=== PATIENT | male | born 1960 | race Caucasian/White ===

== ENCOUNTER 2019-03-06 20:46 | Emergency (ER) | payer OTHER ==
[~2019-03-06] VITALS: Ht 172.7 cm; Wt 75.3 kg
--- NOTE | 2019-03-06 21:02 | NUR ---
PT CAROL FROM HOME C/O L SIDE BODY PAIN AND BACK PAIN. PT STATES HE HAS CHRONIC PAIN, DENIES RECENT TRAUMA. PT [id number], PT APPEARS UNCOMFORTABLE. RESPIRATIONS EVEN AND UNLABORED. SKIN INTACT. NO ACUTE DISTRESS NOTED AT THIS TIME. WILL CONTINUE TO MONITOR
[2019-03-06] MEDS ORDERED: DEXAMETHASONE SOD PHOSPHATE 4 MG/ML VIAL ONE (21:17)
[2019-03-06] MEDS ORDERED: HYDROCODONE/APAP 10/325MG 1 EA TABLET ONE (21:17)
--- NOTE | 2019-03-06 21:22 | NUR ---
PT BROUG[facility] BY RADIOLOGY [facility]
[2019-03-06] MEDS ORDERED: DEXAMETHASONE SOD PHOSPHATE 4 MG/ML VIAL IM ONE (21:30)
[2019-03-06] MEDS ORDERED: HYDROCODONE/APAP 10/325MG 1 EA TABLET PO ONE (21:30)
--- NOTE | 2019-03-06 21:31 | NUR ---
PT RETURNED FROM CT
[2019-03-06] MEDS ORDERED: DIAZEPAM 5 MG TABLET ONE (21:34)
[2019-03-06] MEDS ORDERED: DIAZEPAM 10 MG TABLET PO ONE (22:00)
--- NOTE | 2019-03-06 22:34 | NUR ---
Patient discharged to home in stable condition. Written and verbal after care instructions given. Patient verbalizes understanding of instruction. Pt instructed not to drive, left with sons. Assisted to car via wheel chair
[2019-03-06 22:35] VITALS: BP 127/72
== END 2019-03-06 22:35 | disposition home or self-care (01) ==
LOC: ER 20:50
DX: M54.42 Lumbago with sciatica, left side (principal); I10 Essential (primary) hypertension; G89.29 Other chronic pain
CPT/HCPCS: 72131; 96372; 99284; J1100